=== PATIENT | male | born 1995 | race Caucasian/White ===

== ENCOUNTER 2020-02-22 19:26 | Emergency (ER) | payer BC ==
[~2020-02-22] VITALS: Ht 165.1 cm; Wt 52.3 kg
[~2020-02-22 19:26] MED LIST: ABILIFY5 MG PO; CLEOCIN HC150 MG/CAP PO; KLONOPIN 1MG1 MG PO; PERCOCET 325 MG1 TA2 PO; SEROQUEL 1100 MG/TAB PO; ZOFRAN 4MG T4 MG/TAB PO
[2020-02-22] MEDS ORDERED: CEPHALEXIN500 M1 PO (20:36)
[2020-02-22] MEDS ORDERED: BACTRIM DS 8001 TAB PO (20:36)
[2020-02-22 20:54] VITALS: BP 122/76; PULSE 94; TEMP 98.1
== END 2020-02-22 20:55 | disposition home or self-care (01) ==
LOC: COL.ER 19:26
DX: L03.012 Cellulitis of left finger (principal); F17.290 Nicotine dependence, other tobacco product, uncomplicated; Z21 Asymptomatic human immunodeficiency virus [HIV] infection status

== ENCOUNTER 2020-03-03 12:59 | Emergency (ER) | payer BC ==
[~2020-03-03] VITALS: Ht 165.1 cm; Wt 54.5 kg
[~2020-03-03 12:59] MED LIST changes: +BACTRIM DS 8001 TAB PO; +CEPHALEXIN500 M1 PO
[2020-03-03 13:56] LABS: HEMOGLOBIN 11.9 g/dl (13.5-18.0); MEAN CELL VOLUME 88 fl (80.0-100.0); MEAN CORPUSCULAR HEMOGLOBIN 31 pg (27.0-31.0); MEAN CORPUSCULAR HGB CONC 35 g/dl (33.0-37.0); PLATELET COUNT 155 K/mm3 (130-400); RED BLOOD COUNT 3.89 M/mm3 (4.20-5.60); REDCELL DISTRIBUTION WIDTH-CV 12.9 % (11.5-14.5)
[2020-03-03 13:59] LABS: HEMATOCRIT 34.1 % (42.0-52.0)
[2020-03-03 14:08] LABS: ALBUMIN 4.4 gm/dL (3.5-5.0); BILIRUBIN,TOTAL 0.4 mg/dL (0.0-1.0); CALCIUM 9.1 mg/dL (8.4-10.2); CREATININE, serum 0.9 (0.66-1.25); POTASSIUM 3.9 mmol/L (3.4-5.0); TOTAL PROTEIN 8.2 gm/dL (6.4-8.2)
[2020-03-03 14:58] LABS: BAND 7 % (0-10); EOSINOPHIL 2 % (0-4); LYMPHOCYTE 18 % (20.0-51.0); NEUTROPHILS 72 % (42.0-75.2); PLATELET ESTIMATE NORMAL (NORMAL)
[2020-03-03 16:08] LABS: COLLECTION METHOD CLEAN CATCH
[2020-03-03 16:24] LABS: MUCOUS Present /lpf; PH 5 (5-8); SQUAMOUS EPITHELIAL None Seen /hpf; URINE APPEARANCE Hazy; URINE BACTERIA None Seen /hpf; URINE BILIRUBIN Negative (NEGATIVE); URINE BLOOD 2+ (NEGATIVE); URINE COLOR Yellow; URINE GLUCOSE Negative (NEGATIVE); URINE KETONE Negative (NEGATIVE); URINE LEUKOCYTE ESTERASE Negative (NEGATIVE); URINE NITRATE Negative (NEGATIVE); URINE PROTEIN(semi-quant) 1+ (NEGATIVE); URINE RBC 0-2 /hpf
[2020-03-03 18:10] LABS: GLUCOSE,CSF 65 mg/dL (40-70); TOTAL PROTEIN,CSF 36 mg/dL (15-45)
[2020-03-03 18:27] VITALS: TEMP 98.4
[2020-03-03 19:05] LABS: CSF APPEARANCE CLEAR; CSF COLOR COLORLESS; CSF POLYMORPHONUCLEAR 0 % (0-6); CSF RBC 63 /mm3 (0-0)
[2020-03-03 19:06] LABS: CSF APPEARANCE CLEAR; CSF COLOR COLORLESS; CSF MONONUCLEAR 100 % (70-100); CSF POLYMORPHONUCLEAR 0 % (0-6); CSF RBC 0 /mm3 (0-0)
[2020-03-03 19:22] VITALS: BP 102/67
[2020-03-03] MEDS ORDERED: PHENERGAN 25 TA25 MG PO (19:26)
[2020-03-03 19:50] VITALS: PULSE 86
== END 2020-03-03 19:48 | disposition home or self-care (01) ==
LOC: COL.ER 12:59
PROVIDERS: Emergency Medicine; Physician Assistant
DX: R50.9 Fever, unspecified (principal); F17.290 Nicotine dependence, other tobacco product, uncomplicated; Z21 Asymptomatic human immunodeficiency virus [HIV] infection status; Z20.828 Contact with and (suspected) exposure to other viral communicable diseases
CPT/HCPCS: J1170; J2270; J2405; J3010; J7030

== ENCOUNTER → 2020-07-27 | Outpatient (CLI) | payer BC ==
[~2020-07-27] MED LIST changes: +PHENERGAN 25 TA25 MG PO
== END ==
LOC: COL.RAD 11:18
DX: R10.9 Unspecified abdominal pain (principal)
CPT/HCPCS: Q9967